=== PATIENT | female | born 2000 | race Caucasian/White ===

== ENCOUNTER 2022-06-21 05:14 | Day surgery (SDC) | payer BC, OTHER ==
[~2022-06-21 05:14] MED LIST: Sodium Chloride 0.9% 10 ML Syringe FLUSH PRN; Sodium Chloride 0.9% 10 ML Syringe FLUSH SCH
[2022-06-21] MEDS ORDERED: Dextrose 5%-0.45% NaCl 1,000 ML IV SCH (06:00)
[2022-06-21] MEDS ORDERED: fentaNYL 100 MCG/2 ML SDV ONE (06:25)
[2022-06-21] MEDS ORDERED: Midazolam 1 MG/ML 2 ML SDV ONE (06:25)
[2022-06-21] MEDS ORDERED: fentaNYL 100 MCG/2 ML SDV IV ONE ×2 (06:32)
[2022-06-21] MEDS ORDERED: Midazolam 1 MG/ML 2 ML SDV IV ONE ×2 (06:33)
== END 2022-06-21 08:47 | disposition home or self-care (01) ==
LOC: DL.ENDO 05:14
PROVIDERS: ATTEND Internal Medicine Gastroenterology
DX: K29.50 Unspecified chronic gastritis without bleeding (principal)
CPT/HCPCS: 87077; J2250; J3010; J7042

== ENCOUNTER 2025-02-09 13:10 | Emergency (ER) | payer OTHER ==
[2025-02-09] MEDS: Calamine/Zinc Oxide Lotion 118 ML Bottle TOP PRN (14:15)
== END 2025-02-09 14:21 | disposition home or self-care (01) ==
LOC: DL.ED 13:10
DX: T23.111A Burn of first degree of right thumb (nail), initial encounter (principal); Z86.16 Personal history of COVID-19; X19.XXXA Contact with other heat and hot substances, initial encounter
CPT/HCPCS: 16000; 99282; 99283-25